=== PATIENT | male | born 2000 | race Caucasian/White ===

== ENCOUNTER 2018-04-11 19:41 | Emergency (ER) | payer OTHER ==
[~2018-04-11] VITALS: Ht 177.8 cm; Wt 68.2 kg
[~2018-04-11 19:41] MED LIST: NO HOME MEDICATIONS
[2018-04-11 19:49] VITALS: BP 148/70; TEMP 98.7
[2018-04-11] MEDS ORDERED: NORCO 325 MG-51 TAB PO (20:50)
[2018-04-11 21:02] VITALS: PULSE 81
== END 2018-04-11 21:05 | disposition home or self-care (01) ==
LOC: COL.ER 19:41
DX: S93.602A Unspecified sprain of left foot, initial encounter (principal); F17.210 Nicotine dependence, cigarettes, uncomplicated; Z88.0 Allergy status to penicillin; X50.0XXA Overexertion from strenuous movement or load, initial encounter; Y92.821 Forest as the place of occurrence of the external cause